=== PATIENT | female | born 1990 | race African-American/Black ===

== ENCOUNTER 2020-06-27 21:10 | Emergency (ER) | payer SELFPAY ==
[~2020-06-27] VITALS: Ht 170.2 cm; Wt 77.1 kg
[~2020-06-27 21:10] MED LIST: CYCLOBENZAPRINE10 MG ORAL; DOCUSATE SODIU100 MG ORAL; IBUPROFEN600 MG ORAL; NAPROSYN500 M1 ORAL; NKM; NORCO 5-325 TA1 EACH ORAL; VALIUM5 MG ORAL; [UNRECOGNIZED DRUG - REMARK]
[2020-06-27 21:20] VITALS: BP 116/72
[2020-06-27 21:40] LABS: APPEARANCE,URINE CLEAR; BILIRUBIN, URINE NEGATIVE (NEGATIVE); COLOR,URINE PALE YELLOW; GLUCOSE, URINE (UA) NEGATIVE (NEGATIVE); KETONES,URINE NEGATIVE (NEGATIVE); LEUKOCYTE ESTERASE ,URINE NEGATIVE (NEGATIVE); NITRITE,URINE NEGATIVE (NEGATIVE); PH,URINE 7 (4.5-8.0); PROTEIN,URINE NEGATIVE (NEGATIVE); UROBILINOGEN,URINE 1 MG/DL (0.0-1.0)
[2020-06-27] MEDS ORDERED: Methocarbamol 500mg tab ORAL ONE (21:45)
[2020-06-27] MEDS ORDERED: Ketorolac 60mg Inj IM ONE (21:45)
--- NOTE | 2020-06-27 21:48 | Emergency Room Report ---
History of Present Illness General Chief Complaint: Lower Back Pain or Injury Source: Patient Present Illness HPI Patient is a 29-year-old female presents for increased low back pain. Reports having pain to the low back. Denies any numbness or weakness to her extremities. Reports having injury after lifting a box. States that she felt a pop. Denies any difficulty with urination. Denies any bowel or bladder dysfunction. Pain is worse with flexion. Denies any other locations of pain. Denies any problems with urination or any weakness to her extremities. No recent fever. Allergies: Coded Allergies: NO KNOWN ALLERGIES (Verified Allergy, Severe, 08/19/15) CODEINE (Unverified Allergy, Unknown, 01/22/14) COVID-19 Screening Contact w/high risk pt: No Experienced COVID-19 symptoms?: No COVID-19 Testing performed SUPERVISOR MOLDING: No Patient History Past Medical History: see triage record Last Menstrual Period: 06/2020 Reviewed Nursing Documentation: PMH: Agreed; PSxH: Agreed Nursing Documentation-PMH Past Medical History: No Stated History Review of Systems All Other Systems: negative except mentioned in HPI Physical Exam Vital Signs Date Time Temp Pulse Resp B/P (MAP) Pulse Ox O2 Delivery O2 Flow Rate FiO2 06/27/20 21:13 98.4 80 16 116/72 (87) 97 Room Air General Appearance: well appearing, no apparent distress, alert, GCS 15 Head: normocephalic, atraumatic ENT: hearing grossly normal, normal voice Neck: full range of motion, supple Respiratory: lungs clear, no rhonchi, no respiratory distress, speaking full sentences Cardiovascular #1: normal inspection, no edema Gastrointestinal: normal inspection, soft Musculoskeletal: decreased range of mation Neurologic: alert, motor strength/tone normal, 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 Differential diagnosis include was not limited to herniated disc, muscle spasm, zygapophyseal joint inflammation among others. Patient has a benign exam and does not appear to require any imaging or laboratory testing at this time.Patient symptoms and history is suggestive of disc herniation. Patient does not appear to have any radicular symptoms or hyperreflexia consistent with any kind of a cauda equina syndrome or cord compression. Patient was advised to follow-up with her primary care physician for recheck and to take medications as prescribed. She is to return if worse. 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 There may be some paint striping machine operator discrepancies related to use of this software Labs Test 06/27/20 21:30 Urine Color Pale yellow Urine Appearance Clear Urine pH 7 (4.5-8.0) Urine Specific Baird 1.010 (1.005-1.035) Urine Protein Negative (NEGATIVE) Urine Glucose (UA) Negative (NEGATIVE) Urine Ketones Negative (NEGATIVE) Urine Blood 3+ (NEGATIVE) Urine Nitrite Negative (NEGATIVE) Urine Bilirubin Negative (NEGATIVE) Urine Urobilinogen 1 MG/DL (0.0-1.0) Urine Leukocyte Esterase Negative (NEGATIVE) Urine RBC 5-10 /HPF (0 - 2) Urine WBC 0-2 /HPF (0 - 2) Urine Squamous Epithelial Cells Many /LPF (NONE/OCC) Urine Bacteria Few /HPF (NONE) Urine HCG, Qualitative Negative (NEGATIVE) Last Vital Signs Date Time Temp Pulse Resp B/P (MAP) Pulse Ox O2 Delivery O2 Flow Rate FiO2 06/27/20 21:20 98.4 89 16 116/72 97 Room Air Status: improved Disposition: HOME, SELF-CARE Scripts Methocarbamol* (ROBAXIN-500*) 500 Mg Tablet 500 MG ORAL TID PRN for For Pain, #15 TAB 0 Refills Prov: Jeremiah Sheikh MD 06/27/20 Ibuprofen (Ibuprofen) 400 Mg Tablet 400 MG PO EVERY 8 HOURS, #30 TAB Prov: Jeremiah Sheikh MD 06/27/20 Referrals: NOT CHOSEN IPA/,REFERRING (PCP) Jeremiah Sheikh MD Jun 27, 2020 21:48
[2020-06-27] MEDS ORDERED: IBUPROFEN400 M1 PO (22:22)
[2020-06-27] MEDS ORDERED: ROBAXIN-500MG ORAL (22:22)
[2020-06-27 22:27] VITALS: BP 116/72
== END 2020-06-27 22:30 | disposition home or self-care (01) ==
LOC: EMR 21:25
DX: M54.5 Low back pain (principal); Z88.5 Allergy status to narcotic agent
CPT/HCPCS: 81003; 81025; 96372; 99283